=== PATIENT | male | born 1995 | race Hispanic/Latino ===

== ENCOUNTER 2022-02-01 14:50 | Emergency (ER) | payer OTHER, SELFPAY ==
--- NOTE | 2022-02-01 14:58 | ED.ABDPAIN ---
HPI - Abdominal Pain General Chief Complaint: Unspecified Stated Complaint: left rib pain Time Seen by Provider: 02/01/22 14:56 Source: patient Mode of arrival: ambulatory Limitations: no limitations History of Present Illness HPI narrative: Mr. Garcia is a 26 year old male patient presenting to the clinic today with c/o left sided rib pain x 1 days. He reports he was at work and moving some pallets when he developed this pain in the left ribs. No known injury. Related Data Allergies Allergy/AdvReac Type Severity Reaction Status Date / Time No Known Allergies Allergy Verified 02/01/22 15:23 Review of Systems Review of Systems: Pertinent positives per HPI. Patient denies any fever, chills, rash, headache, visual changes, dizziness, cough, runny nose, sore throat, shortness of breath, chest pain, palpitations, nausea, vomiting, diarrhea, constipation, abdominal pain, or any urinary issues. PMFSH Comments At the time of my signature, I reviewed and agree with the nursing past medical, surgical, social, and family history. There is no relevant family history pertinent to the patient complaint. Exam Narrative: General: Well-developed, well nourished, in no apparent distress Head: Normocephalic, atraumatic. Cardio: Regular rate and rhythm, s1 and s2 normal, no murmur appreciated. Resp: Clear to auscultation bilaterally, no rhonchi, rales, wheezing or rubs. Musculoskeletal: No deformity, tender to palpation over the left lateral ribs, pain with deep inspiration, grossly normal range of motion, muscle strength strong and equal, peripheral pulse strong, no edema, no cyanosis, normal gait and station Course Course Emergency Course: Portions of this record may have been created with voice recognition software. Level of Care: Express Care Visit Vital Signs Vital signs: Vital signs reviewed MDM - Abdominal Pain MDM Narrative Medical decision making narrative: At the time of visit patient is resting comfortably on the exam table. Patient has pain to his left ribs without known injury. Reports he was lifting some pallets when he felt this pain. I suspect patient has a muscle strain/chest wall pain and will give a prescription for some naproxen and Flexeril. Supportive measures were discussed with the patient he voiced understanding of discharge instructions. Differential Diagnosis Differential diagnosis: Likely other (Chest wall pain, costochondritis, rib fracture, pleurisy) Discharge Plan Discharge Clinical Impression: Rib pain on left side, Muscle strain Patient Disposition: Home, Self-Care Condition: Stable Instructions: Antibiotic Form, Muscle Strain (ED), Chest Wall Pain (ED) Additional Instructions: Naproxeno dos veces al d?a y ciclobenzaprina nimco veces al d?a seg?n las indicaciones Precauciones de sedaci?n discutidas para flexeril (relajante muscular) - no lucrecia alcohol con manisha medicamento - no conduzca inicialmente mientras delfin manisha medicamento hasta que sepa c?mo lo hace sentir Aumente los l?quidos y mant?ngase melissa hidratado. Puede aplicar brooklyn bolsa de hielo en el ?michaela afectada. Puede aplicar emu malina, lidoca?na o aspercream seg?n las indicaciones en el ?michaela afectada. Puede usar brooklyn almohada o brooklyn manta doblada para entablillar las costillas izquierdas seg?n sea necesario; aseg?rese de respirar profundamente para prevenir la neumon?a. Puede rina Tylenol adicionalmente para el dolor: 650 mg cada 4 a 6 horas, seg?n sea necesario. Michael un seguimiento con gomez proveedor de atenci?n primaria en 3 a 5 d?as si los s?ntomas persisten o regrese a la cl?dandre o vaya a la emy de emergencias si los s?ntomas empeoran. Patient Language: Welsh Prescriptions: New cyclobenzaprine 10 mg tablet 10 mg PO Q8H PRN (Reason: muscle spasm) 7 Days Qty: 21 0RF naproxen 500 mg tablet 500 mg PO BID PRN (Reason: pain) 7 Days Qty: 14 0RF Follow-up/Referrals: UNKNOWN,DOCTOR [Primary Care Provider] -
[2022-02-01 15:00] VITALS: BP 112/77; PULSE 70; RESP 16; TEMP 36.6; O2SAT 100
== END 2022-02-01 15:28 | disposition home or self-care (01) ==
PROVIDERS: Emergency Provider Nurse Practitioner Family
DX: S29.011A Strain of muscle and tendon of front wall of thorax, initial encounter (principal); X58.XXXA Exposure to other specified factors, initial encounter
CPT/HCPCS: 99203; G0463